=== PATIENT | male | born 1995 | race African-American/Black ===

== ENCOUNTER 2017-06-06 21:40 | Emergency (ER) | payer MEDICAID, OTHER ==
[2017-06-06 21:42] VITALS: BP 128/65; PULSE 78; RESP 16; TEMP 97.9; O2SAT 97
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
== END 2017-06-06 22:56 | disposition home or self-care (01) ==
LOC: NEPK 21:40
DX: S01.01XA Laceration without foreign body of scalp, initial encounter (principal); Z72.0 Tobacco use; Z88.0 Allergy status to penicillin; W03.XXXA Other fall on same level due to collision with another person, initial encounter
CPT/HCPCS: 12032

== ENCOUNTER 2017-06-18 19:19 | Emergency (ER) | payer MEDICAID ==
[~2017-06-18] VITALS: Ht 167.6 cm; Wt 60.0 kg
[2017-06-18 19:21] VITALS: BP 137/63; PULSE 77; RESP 15; TEMP 98.7; O2SAT 98
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
== END 2017-06-18 20:18 | disposition home or self-care (01) ==
LOC: NEPK 19:19
DX: S01.01XD Laceration without foreign body of scalp, subsequent encounter (principal); X58.XXXD Exposure to other specified factors, subsequent encounter; Z48.02 Encounter for removal of sutures
CPT/HCPCS: 99281